=== PATIENT | male | born 1935 | race Caucasian/White ===

== ENCOUNTER 2018-09-23 15:51 | Observation (INO) ==
[2018-09-23] MEDS ORDERED: Ipratropium/Albuterol Neb 3 ML IH ONE (16:09)
[2018-09-23] MEDS ORDERED: methylPREDNISolone 125 MG/2 ML VIAL IVP ONE (16:10)
[2018-09-23 16:46] LABS: Basophils % 0.3 %; Eosinophils # 0.3 K/mcL (0.0-0.6); Eosinophils % 2.8 %; Hemoglobin 12.9 g/dL (12.9-16.9); Immature Granulocytes % 0.3 % (0-4); Lymphocytes % 10.9 %; Mean Corpuscular HGB Conc 32.3 g/dL (31.6-35.5); Mean Platelet Volume 9.4 fL (9.4-12.4); Monocytes # 0.4 K/mcL (0.0-1.3); Monocytes % 4.5 %; Neutrophils # 7.5 K/mcL (1.6-8.9); Platelet Count 135 K/mcL (140-400); Red Cell Distribution Width 14.6 % (11.5-14.5); Segmented Neutrophils % 81.2 %
--- NOTE | 2018-09-23 16:59 | Emergency Department Note ---
Disposition Clinical Impression: Acute exacerbation of chronic obstructive airways disease Congestive heart failure Qualifiers: Heart failure type: unspecified Heart failure chronicity: acute on chronic Qualified Code(s): I50.9 - Heart failure, unspecified Disposition: Admitted As Inpatient Condition: Fair Time of Disposition: 20:01 General Adult HPI - General Chief complaint: ED Shortness of Breath/Dyspnea Stated complaint: ALEXI/Nausea Time Seen by Provider: 09/23/18 16:36 Source: patient, family Limitations: no limitations Nursing Notes Reviewed: Yes Vital Signs Reviewed: Yes - History of Present Illness HPI Narrative: Tye Lowry is an 83 year old male presenting to the emergency department for shortness of breath and chest pain. He states that the chest pain started this morning, is localized to this left side and radiates into his back. He states that he has been having similar episodes for the past several years with associated SOB. He states that this episode of SOB started this morning while sitting, and is worse than normal. He states that he has asthma and uses inhalers prn, however they did not alleviate his current symptoms. He also states that he had 3 episodes of emesis this morning and noticed a small amount of blood in the vomitus. He states that he has a pace maker placed 5 years ago for an irregular heart rate. He denies any recent illness, fevers, chills, cough, or diarrhea, but admits to nausea and lower crampy abdominal pain. He denies any previous DVT or PE, hormone therapy, recent trips or recent surgery. The history, physical exam, and medical decision making was performed by the medical student either while I was physically present and actively involved or I personally re-performed the exam and medical decision making. I have verified the accuracy of the medical student's documentation with regards to the history, physical exam findings, and medical decision making. Pt Subjective Complaint: shortness of breath Onset (ago): hour(s) Location: chest Radiation: back Pain Severity: mild Pain Scale: 1 Quality: sharp Consistency: Improving Improves with: medication Worsens with: other (Deep breath) Associated symptoms: Reports: chest pain Treatments Prior to Arrival: other (Home inhaler) - Related Data Home Medications Medication Instructions Recorded Confirmed Alprazolam [Xanax] 0.5 mg PO HS 06/14/15 06/22/16 Atorvastatin [Lipitor] 10 mg PO QAM 06/14/15 06/22/16 Multivitamin [Multivitamins] 1 cap PO QPM 06/14/15 06/22/16 Omeprazole [PriLOSEC] 20 mg PO DAILY 06/14/15 06/22/16 Ergocalciferol (VITAMIN D2) 400 unit PO DAILY 06/04/16 06/22/16 [Vitamin D] Cetirizine HCl [Zyrtec] 10 mg PO PRN PRN 06/22/16 06/22/16 Previous Rx's Medication Instructions Recorded Metoprolol [Lopressor] 50 mg PO BID #60 tablet 09/18/15 Rivaroxaban [Xarelto] 20 mg PO DAILY #30 tablet 09/18/15 Allergies Allergy/AdvReac Type Severity Reaction Status Date / Time diazepam [From Valium] AdvReac Fainting Verified 11/19/17 11:45 Constitutional: Denies: fever, chills, weakness, weight change Eyes: Denies: eye pain, eye discharge, vision change Cardiovascular: Reports: chest pain. Denies: palpitations, dyspnea on exertion, edema, syncope Respiratory: Reports: dyspnea, wheezes. Denies: cough, hemoptysis, stridor Gastrointestinal: Reports: abdominal pain (Lower crampy), nausea, vomiting. Denies: diarrhea, constipation, hematemesis, melena, hematochezia Genitourinary: Denies: urgency, dysuria, frequency, hematuria Musculoskeletal: Denies: back pain, neck pain, arthralgia, myalgia Integumentary: Denies: rash, abrasion, lesions Neurological: Denies: headache, weakness, numbness, paresthesias, confusion, abnormal gait, vertigo Psychiatric: Denies: anxiety, depression, suicidal thoughts, homicidal thoughts, auditory hallucinations, visual hallucinations Endocrine: Denies: fatigue Hematological/Lymphatic: Denies: easy bleeding, easy bruising Allergic/Immunologic: Denies: facial swelling, urticaria Past Medical History - Past Medical History Medical history: Reports: non-contributory Surgical history: Reports: herniorrhaphy, knee replacement, orthopedic, other, pacemaker/AICD, sinus surgery Psychiatric history: Reports: no psych history - Social History Smoking Status: Never smoker Smokeless Tobacco Status: No Alcohol use: Reports: none Drug use: Reports: none Physical Exam - General Limitations: no limitations General appearance: alert - Head Head exam: atraumatic, normocephalic, normal inspection - Eye Eye exam: Present: normal appearance, PERRL, EOMI - ENT ENT exam: normal exam, normal oropharynx, mucous membranes moist - Neck Neck exam: Present: normal inspection, full ROM, trachea midline - Chest Chest inspection: Present: normal inspection, symmetric chest wall rise - Respiratory Respiratory exam: Present: respiratory distress, wheezes - Cardiovascular Cardiovascular exam: Present: regular rate. Absent: normal rhythm (Runs of PVCs ) - Abdominal Exam Abdominal exam: Present: soft, tenderness (Lower abdomen). Absent: distention, guarding, rebound, rigidity Abdominal tenderness: Present: suprapubic, mild - Extremities Exam Extremities exam: Present: normal inspection, full ROM. Absent: tenderness, pedal edema - Back Exam Back exam: Present: normal inspection, full ROM. Absent: tenderness - Neurological Exam Neurological exam: Present: alert, oriented X3 - Psychiatric Psychiatric exam: Present: normal affect, normal mood - Skin Skin exam: Present: warm, dry, intact, normal color Course Vital Signs Temperature 98.1 F 09/23/18 15:55 Pulse Rate 78 09/23/18 15:55 Respiratory Rate 30 09/23/18 15:55 Blood Pressure 164/78 09/23/18 15:55 O2 Sat by Pulse Oximetry 91 09/23/18 15:55 Temperature 98.1 F 09/23/18 16:46 Pulse Rate 79 09/23/18 19:01 Respiratory Rate 28 09/23/18 19:01 Blood Pressure 157/90 09/23/18 19:01 O2 Sat by Pulse Oximetry 98 09/23/18 19:01 Oxygen Delivery Oxygen Delivery Nasal Cannula Medical Decision Making - Lab Data Result diagrams: 09/23/18 16:16 09/23/18 16:16 Lab Results 09/23/18 09/23/18 09/23/18 Range/Units 16:16 16:16 16:16 WBC 9.3 (4.3-11.1) K/mcL RBC 4.30 (4.19-5.50) M/mcL Hgb 12.9 (12.9-16.9) g/dL Hct 40.0 (37.5-50.1) % MCV 93.0 (83.0-100.0) fL MCH 30.0 (28.0-33.3) pg MCHC 32.3 (31.6-35.5) g/dL RDW 14.6 H (11.5-14.5) % Plt Count 135 L (140-400) K/mcL MPV 9.4 (9.4-12.4) fL Immature Gran % 0.3 (0-4) % Seg Neutrophils % 81.2 % Lymphocytes % 10.9 % Monocytes % 4.5 % Eosinophils % 2.8 % Basophils % 0.3 % Neutrophils # 7.5 (1.6-8.9) K/mcL Lymphocytes # 1.0 (0.6-4.6) K/mcL Monocytes # 0.4 (0.0-1.3) K/mcL Eosinophils # 0.3 (0.0-0.6) K/mcL Basophils # 0.0 (0.0-0.2) K/mcL Sodium 140 (136-145) mEq/L Potassium 4.3 (3.5-5.1) mEq/L Chloride 103 (98-107) mEq/L Carbon Dioxide 31 H (23-29) mEq/L BUN 15 (8-23) mg/dL Creatinine 0.81 (0.70-1.30) mg/dL Est GFR ( Amer) > 60 (> 60) Est GFR (Non-Af Amer) > 60 (> 60) BUN/Creatinine Ratio 19 (6-26) Glucose 126 H (70-105) mg/dL Calculated Osmolality 292 (280-300) Lactic Acid 1.1 (0.5-2.2) mmol/L Calcium 9.7 (8.6-10.3) mg/dL Troponin I < 0.03 (< 0.04) ng/mL B-Natriuretic Peptide (Less than 100) pg/mL 09/23/18 Range/Units 16:16 WBC (4.3-11.1) K/mcL RBC (4.19-5.50) M/mcL Hgb (12.9-16.9) g/dL Hct (37.5-50.1) % MCV (83.0-100.0) fL MCH (28.0-33.3) pg MCHC (31.6-35.5) g/dL RDW (11.5-14.5) % Plt Count (140-400) K/mcL MPV (9.4-12.4) fL Immature Gran % (0-4) % Seg Neutrophils % % Lymphocytes % % Monocytes % % Eosinophils % % Basophils % % Neutrophils # (1.6-8.9) K/mcL Lymphocytes # (0.6-4.6) K/mcL Monocytes # (0.0-1.3) K/mcL Eosinophils # (0.0-0.6) K/mcL Basophils # (0.0-0.2) K/mcL Sodium (136-145) mEq/L Potassium (3.5-5.1) mEq/L Chloride (98-107) mEq/L Carbon Dioxide (23-29) mEq/L BUN (8-23) mg/dL Creatinine (0.70-1.30) mg/dL Est GFR ( Amer) (> 60) Est GFR (Non-Af Amer) (> 60) BUN/Creatinine Ratio (6-26) Glucose (70-105) mg/dL Calculated Osmolality (280-300) Lactic Acid (0.5-2.2) mmol/L Calcium (8.6-10.3) mg/dL Troponin I (< 0.04) ng/mL B-Natriuretic Peptide 589 H (Less than 100) pg/mL - Radiology Data Radiology results reviewed: Yes I reviewed the patient's radiology results. - EKG Data EKG #1 EKG attestation: Yes I reviewed and interpreted this EKG. EKG results narrative: 16:05 Ventricular rate 74 bpm, no P waves, QRS duration 84 ms, LAD a-fib and atrial flutter. Some PVCs. No ischemic ST changes noted.
[2018-09-23 17:04] LABS: BUN/Creatinine Ratio 19 (6-26); Blood Urea Nitrogen 15 mg/dL (8-23); Calcium 9.7 mg/dL (8.6-10.3); Carbon Dioxide 31 mEq/L (23-29); Chloride 103 mEq/L (98-107); Glucose 126 mg/dL (70-105); Osmolality,Calculated 292 (280-300); Potassium 4.3 mEq/L (3.5-5.1); Sodium 140 mEq/L (136-145); Troponin I < 0.03 ng/mL (< 0.04); eGFR For Non-African Americans > 60 (> 60)
--- NOTE | 2018-09-23 18:37 | Emergency Department Note ---
Disposition Clinical Impression: Acute exacerbation of chronic obstructive airways disease Congestive heart failure Qualifiers: Heart failure type: unspecified Heart failure chronicity: acute on chronic Qualified Code(s): I50.9 - Heart failure, unspecified Disposition: Admitted As Inpatient Referrals: Taz Lubin Jr, MD [Primary Care Provider] - Forms: ED Satisfaction Letter General Adult HPI - General Chief complaint: ED Shortness of Breath/Dyspnea Stated complaint: ALEXI/Nausea Time Seen by Provider: 09/23/18 16:36 Source: patient, family Limitations: no limitations - History of Present Illness Location: chest Pain Scale: 1 Quality: sharp Improves with: medication Worsens with: other (Deep breath) Associated symptoms: Reports: chest pain Treatments Prior to Arrival: other (Home inhaler) - Related Data Home Medications Medication Instructions Recorded Confirmed Alprazolam [Xanax] 0.5 mg PO HS 06/14/15 06/22/16 Atorvastatin [Lipitor] 10 mg PO QAM 06/14/15 06/22/16 Multivitamin [Multivitamins] 1 cap PO QPM 06/14/15 06/22/16 Omeprazole [PriLOSEC] 20 mg PO DAILY 06/14/15 06/22/16 Ergocalciferol (VITAMIN D2) 400 unit PO DAILY 06/04/16 06/22/16 [Vitamin D] Cetirizine HCl [Zyrtec] 10 mg PO PRN PRN 06/22/16 06/22/16 Previous Rx's Medication Instructions Recorded Metoprolol [Lopressor] 50 mg PO BID #60 tablet 09/18/15 Rivaroxaban [Xarelto] 20 mg PO DAILY #30 tablet 09/18/15 Allergies Allergy/AdvReac Type Severity Reaction Status Date / Time diazepam [From Valium] AdvReac Fainting Verified 11/19/17 11:45 Constitutional: Denies: fever, chills, weakness, weight change Eyes: Denies: eye pain, eye discharge, vision change Cardiovascular: Reports: chest pain. Denies: palpitations, dyspnea on exertion, edema, syncope Respiratory: Reports: dyspnea, wheezes. Denies: cough, hemoptysis, stridor Gastrointestinal: Reports: abdominal pain (Lower crampy), nausea, vomiting. Denies: diarrhea, constipation, hematemesis, melena, hematochezia Genitourinary: Denies: urgency, dysuria, frequency, hematuria Musculoskeletal: Denies: back pain, neck pain, arthralgia, myalgia Integumentary: Denies: rash, abrasion, lesions Neurological: Denies: headache, weakness, numbness, paresthesias, confusion, abnormal gait, vertigo Psychiatric: Denies: anxiety, depression, suicidal thoughts, homicidal thoughts, auditory hallucinations, visual hallucinations Endocrine: Denies: fatigue Hematological/Lymphatic: Denies: easy bleeding, easy bruising Allergic/Immunologic: Denies: facial swelling, urticaria Past Medical History - Past Medical History Medical history: Reports: non-contributory Surgical history: Reports: herniorrhaphy, knee replacement, orthopedic, other, pacemaker/AICD, sinus surgery Psychiatric history: Reports: no psych history - Social History Smoking Status: Never smoker Smokeless Tobacco Status: No Alcohol use: Reports: none Drug use: Reports: none Physical Exam - General Limitations: no limitations General appearance: alert Course Vital Signs Temperature 98.1 F 09/23/18 15:55 Pulse Rate 78 09/23/18 15:55 Respiratory Rate 30 09/23/18 15:55 Blood Pressure 164/78 09/23/18 15:55 O2 Sat by Pulse Oximetry 91 09/23/18 15:55 Temperature 98.1 F 09/23/18 16:46 Pulse Rate 78 09/23/18 16:46 Respiratory Rate 28 09/23/18 16:47 Blood Pressure 164/78 09/23/18 16:46 O2 Sat by Pulse Oximetry 97 09/23/18 16:47 Oxygen Delivery Oxygen Delivery Nasal Cannula Medical Decision Making - Lab Data Result diagrams: 09/23/18 16:16 09/23/18 16:16 Lab Results 09/23/18 09/23/18 09/23/18 Range/Units 16:16 16:16 16:16 WBC 9.3 (4.3-11.1) K/mcL RBC 4.30 (4.19-5.50) M/mcL Hgb 12.9 (12.9-16.9) g/dL Hct 40.0 (37.5-50.1) % MCV 93.0 (83.0-100.0) fL MCH 30.0 (28.0-33.3) pg MCHC 32.3 (31.6-35.5) g/dL RDW 14.6 H (11.5-14.5) % Plt Count 135 L (140-400) K/mcL MPV 9.4 (9.4-12.4) fL Immature Gran % 0.3 (0-4) % Seg Neutrophils % 81.2 % Lymphocytes % 10.9 % Monocytes % 4.5 % Eosinophils % 2.8 % Basophils % 0.3 % Neutrophils # 7.5 (1.6-8.9) K/mcL Lymphocytes # 1.0 (0.6-4.6) K/mcL Monocytes # 0.4 (0.0-1.3) K/mcL Eosinophils # 0.3 (0.0-0.6) K/mcL Basophils # 0.0 (0.0-0.2) K/mcL Sodium 140 (136-145) mEq/L Potassium 4.3 (3.5-5.1) mEq/L Chloride 103 (98-107) mEq/L Carbon Dioxide 31 H (23-29) mEq/L BUN 15 (8-23) mg/dL Creatinine 0.81 (0.70-1.30) mg/dL Est GFR ( Amer) > 60 (> 60) Est GFR (Non-Af Amer) > 60 (> 60) BUN/Creatinine Ratio 19 (6-26) Glucose 126 H (70-105) mg/dL Calculated Osmolality 292 (280-300) Lactic Acid 1.1 (0.5-2.2) mmol/L Calcium 9.7 (8.6-10.3) mg/dL Troponin I < 0.03 (< 0.04) ng/mL B-Natriuretic Peptide (Less than 100) pg/mL 09/23/18 Range/Units 16:16 WBC (4.3-11.1) K/mcL RBC (4.19-5.50) M/mcL Hgb (12.9-16.9) g/dL Hct (37.5-50.1) % MCV (83.0-100.0) fL MCH (28.0-33.3) pg MCHC (31.6-35.5) g/dL RDW (11.5-14.5) % Plt Count (140-400) K/mcL MPV (9.4-12.4) fL Immature Gran % (0-4) % Seg Neutrophils % % Lymphocytes % % Monocytes % % Eosinophils % % Basophils % % Neutrophils # (1.6-8.9) K/mcL Lymphocytes # (0.6-4.6) K/mcL Monocytes # (0.0-1.3) K/mcL Eosinophils # (0.0-0.6) K/mcL Basophils # (0.0-0.2) K/mcL Sodium (136-145) mEq/L Potassium (3.5-5.1) mEq/L Chloride (98-107) mEq/L Carbon Dioxide (23-29) mEq/L BUN (8-23) mg/dL Creatinine (0.70-1.30) mg/dL Est GFR ( Amer) (> 60) Est GFR (Non-Af Amer) (> 60) BUN/Creatinine Ratio (6-26) Glucose (70-105) mg/dL Calculated Osmolality (280-300) Lactic Acid (0.5-2.2) mmol/L Calcium (8.6-10.3) mg/dL Troponin I (< 0.04) ng/mL B-Natriuretic Peptide 589 H (Less than 100) pg/mL Attestation Statement - Attestation Attestation: I examined this patient and my medical decision-making was reviewed with the Resident Physician. I agree with the documented findings, disposition and treatment plan as described except to the extent set forth below. 83 year old male presets to the ED with complaints of ALEXI and is tachypneic to the 30s without being hypoxic and has a pacemaker. Patinet appears tohave an elevated BNP and like a COPD excbeariton. Von has exertional dyspnea on exam when trying to ambulate inthe room. WE will admit to medicine
--- NOTE | 2018-09-23 19:09 | Electrocardiograph Report ---
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
[2018-09-23] MEDS: Ipratropium/Albuterol Neb 3 ML IH SCH ×2 (19:50→23:45)
[2018-09-23] MEDS ORDERED: Albuterol 2.5 MG/3 ML NEBULIZER IH ONE (19:54)
--- NOTE | 2018-09-23 20:27 | Internal Med History&Physical ---
Date of Encounter: 09/23/18 Time of Encounter: 20:31 Internal Medicine - H&P: HPI Chief complaint: Shortness of breath Admitted From: Home Plans for Post Hospital Care: Home History of present illness: Tye Lowry is an 83 year old man with a history of asthma/COPD with restrictive ventilatory impairment without significant bronchodilator response on spirometry of 2015 in addition to an obstructive flow volume loop, paroxysmal atrial fibrillation with a pacemaker in place and [facility] with a complaint of shortness of breath and chest pain. His reports that his chest pain has been progressing over the past few days and poorly responsive to his inhaler therapy and today acutely worsened. He also says that today he started feeling some intermittent chest pain around his precordial region with no characteristic radiation or associated lightheadedness. He was seen to be in moderate respiratory distress with shallow tachypneic breathing which modestly improved with nebulizer treatment however at this time he feels it is recurring. He is admitted for ongoing observation due to chest pain and incomplete response to nebulizer therapy. PMHx: Anemia, Arthritis, Cardiac Arrhythmia. Surgical history remarkable for EGD by Dr Carlitos Wang in March 2013. Normal. Colonoscopy by Dr Akiko De Luna in November 2010. Normal SHx: Former smoker. FHx: Significant for heart disease and cancer. He has a sister with a history of cancer. Family history is also significant for hyperlipidemia. Review of systems: All systems reviewed and negative except as listed above in the HPI. Past Med Surg Social Fam HX - Past Medical History Medical history: non-contributory Additional medical history: 'mild heart attack (pacemaker) Psychiatric history: no psych history - Past Surgical History Surgical History: herniorrhaphy, knee replacement, orthopedic, other, pacemaker/AICD, sinus surgery Additional surgical history: egd - colonoscopy -hemmoroids - Social History Smoking Status: Never smoker Smokeless Tobacco Status: No Alcohol use: none Drug use: none - Family History Mother Living Status: Father Living Status: Internal Medicine - H&P: Meds Multivitamin [Multivitamins] 1 cap PO QPM 06/14/15 [History] Rivaroxaban [Xarelto] 20 mg PO DAILY #30 tablet 09/18/15 [Rx] Cetirizine HCl [Zyrtec] 10 mg PO PRN PRN 06/22/16 [History] ALPRAZolam [Xanax 0.25 MG Tablet] 0.25 mg PO DAILY 09/23/18 [History] Albuterol Sulfate [Proventil Hfa] 2 puff IH Q4H PRN 09/23/18 [History] Atorvastatin [Lipitor] 10 mg PO HS 09/23/18 [History] Metoprolol Tartrate 50 mg PO BID 09/23/18 [History] Omeprazole [PriLOSEC] 20 mg PO DAILY 09/23/18 [History] Oxygen 2 l IH AD 09/23/18 [History] Allergy/AdvReac Type Severity Reaction Status Date / Time diazepam [From Valium] AdvReac Fainting Verified 09/23/18 20:08 All Systems PM: A 10-system review of systems was performed and is negative for pertinent findings except as documented above in the HPI. - Constitutional Vitals: Temp Pulse Resp BP Pulse Ox 98.1 F 79 34 146/85 98 09/23/18 16:46 09/23/18 19:01 09/23/18 20:17 09/23/18 20:17 09/23/18 19:01 Exam: Vitals: Reviewed General: Well-developed male sitting in bed with mild respiratory distress noted Skin: Warm and supple HEENT: Moist mucous membranes. No conjunctivae pallor. Neck: No lymphadenopathy. No JVD. No carotid bruits. No palpable thyroid. Chest: Diminished thoracic expansion with reduced breath sounds bilaterally and scattered wheezes in both lung [place]. Heart: Irregularly irregular. Pacemaker on left upper chest wall Abdomen: Non-distended, soft and non-tender to palpation. Extremities: Trace pedal edema Neurological: Awake, alert and oriented to person, place and time. No focal deficits. Psych: Affect appropriate. Internal Med - H&P Results - Labs CBC & Chem 7: 09/23/18 16:16 09/23/18 16:16 Labs: Short CBC 09/23/18 Range/Units 16:16 WBC 9.3 (4.3-11.1) K/mcL Hgb 12.9 (12.9-16.9) g/dL Hct 40.0 (37.5-50.1) % Plt Count 135 L (140-400) K/mcL Neutrophils # 7.5 (1.6-8.9) K/mcL BMP 09/23/18 16:16 Sodium 140 Potassium 4.3 Chloride 103 Carbon Dioxide 31 H BUN 15 Creatinine 0.81 Glucose 126 H Calcium 9.7 Cardiac Enzymes 09/23/18 Range/Units 16:16 Troponin I < 0.03 (< 0.04) ng/mL - Impressions ITS Impressions Chest X-Ray 09/23/18 16:09 IMPRESSION: Stable portable study. D/ / Lakisha Corrigan Cha, MD / Lakisha Corrigan Cha, MD Interpreting Provider: Lakisha Corrigan Cha, MD - Assessment and plan (1) Acute exacerbation of chronic obstructive airways disease Current Visit: Yes Status: Acute Assessment and plan: Will continue intravenous steroids due to his ongoing symptoms, respiratory watch, q4hr nebulizer therapy and continue supplemental oxygen. Swab for inf luenza. Short course azithromycin. (2) Chest pain Current Visit: No Status: Resolved Assessment and plan: Due to prior cardiac history and new complaint of oppressive pain, will monitor on telemetry and trend troponins and EKG as well. Qualifiers: Chest pain type: precordial pain Qualified Code(s): R07.2 - Precordial pain (3) Atrial fibrillation Current Visit: Yes Status: Chronic Assessment and plan: Continue rivaroxaban. Rate controlled Qualifiers: Atrial fibrillation type: chronic Qualified Code(s): I48.2 - Chronic atrial fibrillation (4) Diastolic CHF, chronic Current Visit: Yes Status: Chronic Assessment and plan: No signs of acute decompensation at this time. Has minimal elevation of BNP and trace pedal edema. We will continue home medications. (5) Tachy-irma syndrome Current Visit: Yes Status: Suspected Assessment and plan: Pacemaker in place and functional. - Time Spent With Patient Total time spent is greater than 50% in coordination of care (as documented) at patient's floor/unit and/or counseling patient: Greater than 35 minutes
[2018-09-23] MEDS ORDERED: NON-FORMULARY MEDICATION 1 EACH EACH (Oxygen [Oxygen] 2 L) IH SCH (20:45)
[2018-09-23] MEDS ORDERED: ALPRAZolam 0.5 MG TABLET PO SCH (21:00)
[2018-09-23] MEDS: ALPRAZolam 0.25 MG TABLET PO SCH (22:46)
[2018-09-23] MEDS: Azithromycin 500 MG in D5% in Water 250 ML IVPB SCH (22:47)
[2018-09-24] MEDS: Ipratropium/Albuterol Neb 3 ML IH SCH ×6 (03:43→23:54)
[2018-09-24] MEDS ORDERED: Acetaminophen 325 MG TABLET PO PRN (06:38)
[2018-09-24] MEDS ORDERED: OXYCODONE Oral CONC 10 MG/0.5 ML ORAL.SYG SL PRN (06:39)
[2018-09-24] MEDS: *HR* HYDROcodone/Acet 5/325 mg TABLET PO PRN ×2 (06:52→22:53)
[2018-09-24] MEDS: MethylPREDNISolone 40 MG/ML VIAL IVP SCH ×3 (06:52→22:54)
[2018-09-24] MEDS ORDERED: predniSONE 20 MG TABLET PO SCH (09:00)
[2018-09-24] MEDS: Cholecalciferol (D-3) 1,000 UNIT TABLET PO SCH (09:29)
--- NOTE | 2018-09-24 10:50 | Internal Med Progress Note ---
Hospitalist Progress Note - Encounter Date of Encounter: 09/24/18 Time of Encounter: 10:50 - Subjective Interval History: Patient was seen and examined at bedside-continues to complain of shortness of breath-denies any chest pain at this time however he does have weight describes as musculoskeletal pain which occurs in his back and radiates to his chest and is relieved with pressure as well as pain medication. I did review treatment plan at the patient verbalized understanding - Exam Vitals: Temp Pulse Resp BP Pulse Ox 97.6 F 71 17 149/78 99 09/24/18 07:08 09/24/18 07:08 09/24/18 07:29 09/24/18 07:08 09/24/18 07:29 Exam: Vitals: Reviewed General: Well-developed male sitting in bed with mild respiratory distress noted Skin: Warm and supple HEENT: Moist mucous membranes. No conjunctivae pallor. Neck: No lymphadenopathy. No JVD. No carotid bruits. No palpable thyroid. Chest: Diminished thoracic expansion with reduced breath sounds bilaterally and scattered wheezes in both lung [place]. Heart: Irregularly irregular. Pacemaker on left upper chest wall Abdomen: Non-distended, soft and non-tender to palpation. Extremities: Trace pedal edema Neurological: Awake, alert and oriented to person, place and time. No focal deficits. Psych: Affect appropriate. - Assessment and Plan (1) Atrial fibrillation Current Visit: Yes Status: Chronic Assessment and Plan: Continue rivaroxaban. Rate controlled 09/24 Currently rate controlled at times patient is a paced rhythm on monitor Continue with cardiac monitoring Continue beta marilee as well as Xarelto (2) Chest pain Current Visit: No Status: Resolved Assessment and Plan: Due to prior cardiac history and new complaint of oppressive pain, will monitor on telemetry and trend troponins and EKG as well. 09/24 I do not suspect this is cardiac in nature patient states he has chronic pain in his back that radiates to his chest which has been relieved with pressure as well as pain medication. Troponins have been negative 3 (3) Diastolic CHF, chronic Current Visit: Yes Status: Chronic Assessment and Plan: No signs of acute decompensation at this time. Has minimal elevation of BNP and trace pedal edema. We will continue home medications. 09/24 Does not appear to be fluid overloaded at this time we will continue with home medication monitor intake and output and daily weights Low salt diet (4) Tachy-irma syndrome Current Visit: Yes Status: Suspected Assessment and Plan: Pacemaker in place and functional. 09/24 Continuous cardiac monitoring patient does have pacemaker appears to be funct ioning (5) Acute exacerbation of chronic obstructive airways disease Current Visit: Yes Status: Acute Assessment and Plan: Will continue intravenous steroids due to his ongoing symptoms, respiratory watch, q4hr nebulizer therapy and continue supplemental oxygen. Swab for influenza. Short course azithromycin. 09/24 Patient continues to experience wheezes at time is audible-he does have some slight conversational dyspnea we will continue with IV steroids and nebulizers every 4 hours oxygen to maintain SPO2 greater than 92% azithromycin We will check a respiratory panel patient's has been ill History of states he did have a flu and pneumonia shot in August Sputum culture and blood cultures are pending - Time Spent with Patient Total time spent is greater than 50% in coordination of care (as documented) at patient's floor/unit and/or counseling patient: Internal Medicine: Result - Labs CBC & Chem 7: 09/23/18 16:16 09/23/18 16:16 Labs: Short CBC 09/23/18 Range/Units 16:16 WBC 9.3 (4.3-11.1) K/mcL Hgb 12.9 (12.9-16.9) g/dL Hct 40.0 (37.5-50.1) % Plt Count 135 L (140-400) K/mcL Neutrophils # 7.5 (1.6-8.9) K/mcL BMP 09/23/18 16:16 Sodium 140 Potassium 4.3 Chloride 103 Carbon Dioxide 31 H BUN 15 Creatinine 0.81 Glucose 126 H Calcium 9.7 Cardiac Enzymes 09/23/18 09/23/18 09/24/18 Range/Units 16:16 21:59 04:36 Troponin I < 0.03 < 0.03 < 0.03 (< 0.04) ng/mL - Impressions Impressions Chest X-Ray 09/23/18 16:09 IMPRESSION: Stable portable study. D/ / Lakisha Corrigan Cha, MD / Lakisha Corrigan Cha, MD Interpreting Provider: Lakisha Corrigan Cha, MD Consult Discharge Plan - Plan Referrals: Taz Lubin Jr, MD [Primary Care Provider] - (1) Atrial fibrillation Qualifiers: Atrial fibrillation type: chronic Qualified Code(s): I48.2 - Chronic atrial fibrillation (2) Chest pain Qualifiers: Chest pain type: precordial pain Qualified Code(s): R07.2 - Precordial pain
[2018-09-24 16:30] LABS: Adenovirus Not Detected (Not Detect); Bordetella Pertussis Not Detected (Not Detect); Chlamydophila pneumoniae Not Detected (Not Detect); Coronavirus 229E Not Detected (Not Detect); Coronavirus HKU1 Not Detected (Not Detect); Coronavirus NL63 Not Detected (Not Detect); Coronavirus OC43 Not Detected (Not Detect); Human Metapneumovirus Not Detected (Not Detect); Human Rhinovirus/Enterovirus DETECTED (Not Detect); Influenza A Subtype 2009 H1 Not Detected (Not Detect); Influenza A Untypeable Not Detected (Not Detect); Influenza B Not Detected (Not Detect); Mycoplasma pneumoniae Not Detected (Not Detect); Parainfluenza Virus 1 Not Detected (Not Detect); Parainfluenza Virus 2 Not Detected (Not Detect); Parainfluenza Virus 3 Not Detected (Not Detect); Parainfluenza Virus 4 Not Detected (Not Detect); Respiratory Syncytial Virus Not Detected (Not Detect)
[2018-09-24] MEDS: *HR* Rivaroxaban 10 MG TABLET PO SCH (17:28)
[2018-09-24] MEDS: Azithromycin 500 MG in D5% in Water 250 ML IVPB SCH (20:42)
[2018-09-24] MEDS: ALPRAZolam 0.25 MG TABLET PO SCH (20:42)
[2018-09-25 03:26] LABS: Basophils % 0.1 %; Hematocrit 38.1 % (37.5-50.1); Hemoglobin 12.6 g/dL (12.9-16.9); Immature Granulocytes % 0.7 % (0-4); Lymphocytes # 0.6 K/mcL (0.6-4.6); Mean Corpuscular HGB Conc 33.1 g/dL (31.6-35.5); Mean Corpuscular Hemoglobin 30.4 pg (28.0-33.3); Mean Corpuscular Volume 91.8 fL (83.0-100.0); Mean Platelet Volume 9.9 fL (9.4-12.4); Monocytes # 0.3 K/mcL (0.0-1.3); Monocytes % 2.3 %; Neutrophils # 12.9 K/mcL (1.6-8.9); Nucleated Red Blood Cells 0.1 /100 WBC (0); Platelet Count 140 K/mcL (140-400); Red Blood Count 4.15 M/mcL (4.19-5.50); Red Cell Distribution Width 14.8 % (11.5-14.5); Segmented Neutrophils % 92.9 %
[2018-09-25 03:43] LABS: BUN/Creatinine Ratio 27 (6-26); Blood Urea Nitrogen 28 mg/dL (8-23); Calcium 9.5 mg/dL (8.6-10.3); Carbon Dioxide 28 mEq/L (23-29); Chloride 103 mEq/L (98-107); Glucose 168 mg/dL (70-105); Osmolality,Calculated 295 (280-300); Potassium 4.4 mEq/L (3.5-5.1); Sodium 138 mEq/L (136-145); eGFR For Non-African Americans > 60 (> 60)
[2018-09-25] MEDS: Ipratropium/Albuterol Neb 3 ML IH SCH ×6 (04:24→19:49)
[2018-09-25] MEDS: MethylPREDNISolone 40 MG/ML VIAL IVP SCH ×3 (05:54→20:40)
[2018-09-25] MEDS: *HR* HYDROcodone/Acet 5/325 mg TABLET PO PRN (05:54)
--- NOTE | 2018-09-25 09:14 | Internal Med Progress Note ---
Hospitalist Progress Note - Encounter Date of Encounter: 09/25/18 Time of Encounter: 09:09 - Subjective Interval History: Mr Morales Lowry Continues with episodic chest pain, distal to left wall pacemaker. Continues to have acute episodic left scapula pain, that is improved with pressure on the corner of the wall, analgesic, and if "my at times pushes on the spot". States he at times feels a knot in the area of pain. Denies any other associated s/s such as shortness of breath, N/V, dizziness, blurred vision, associated with left scapular pain. He is interviewed at bedside today, accompanied by his , in no acute distress, pleasant, alert,awake, and oriented x 4 - Exam Vitals: Temp Pulse Resp BP Pulse Ox 97.8 F 71 20 145/86 95 09/25/18 07:35 09/25/18 07:35 09/25/18 08:03 09/25/18 07:35 09/25/18 08:03 Exam: stable on RA - Assessment and Plan (1) Atrial fibrillation Current Visit: Yes Status: Chronic Assessment and Plan: pacer in left chest wall, with paced rthym on telemetry. EKG reviewed and abnormal : ATial Fib with aberrant conduction or ventricular premature complexes, Positive Right ventricular conduction delay, ST deviation and moderate T-wave abnormality, consider lateral ischemia ST deviation and moderate T-wave abnormality , consider inferior ischemia Troponin trending neg x 3 Consult for cardiology placed . 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 with paced rhythm Will continue with telemetry and Xarelto (5) Acute exacerbation of chronic obstructive airways disease Current Visit: Yes Status: Acute Assessment and Plan: Stable, non-dyspneic Flu swab negative, Rhino swab positive for common cold Will continue with ATB DVT Prophylaxis: per protocol, continue xarelto - Summary of Assessment and Plan Summary of Assessment and Plan: Continues with episodic chest pain, and left scapula pain. Probable muscloskele chin in nature. Paced rhyme per telemetry with abnormal EKG, : atrial fib, with aberrant conduction or ventricular PVC, , possible right Ventricular conduction delay, ST Deviation and moderate T-wave abn, consider lateral ischemia, consider inferior ischemia, Troponin negative . Cardiology consult has been placed. Will continue to monitor closely with telemetry, continue beta blockers, and anticoagulants. Influenza negative with positive common cold rhinovirus. - Time Spent with Patient Total time spent is greater than 50% in coordination of care (as documented) at patient's floor/unit and/or counseling patient: less than 15 minutes Plan of Care Discussed with: patient Internal Medicine: Result - Labs CBC & Chem 7: 09/25/18 02:53 09/25/18 02:53 Labs: Short CBC 09/25/18 Range/Units 02:53 WBC 13.9 H (4.3-11.1) K/mcL Hgb 12.6 L (12.9-16.9) g/dL Hct 38.1 (37.5-50.1) % Plt Count 140 (140-400) K/mcL Neutrophils # 12.9 H (1.6-8.9) K/mcL BMP 09/25/18 02:53 Sodium 138 Potassium 4.4 Chloride 103 Carbon Dioxide 28 BUN 28 H Creatinine 1.04 Glucose 168 H Calcium 9.5 - EKG Interpretation EKG Interpreted by Myself: No (abnormal see report ) - Prior EKG Data When compared to previous EKG: there are significant changes Consult Discharge Plan - Plan Referrals: Taz Lubin Jr, MD [Primary Care Provider] - (1) Atrial fibrillation Qualifiers: Atrial fibrillation type: chronic Qualified Code(s): I48.2 - Chronic atrial fibrillation (2) Chest pain Qualifiers: Chest pain type: precordial pain Qualified Code(s): R07.2 - Precordial pain
[2018-09-25] MEDS: Cholecalciferol (D-3) 1,000 UNIT TABLET PO SCH (09:34)
[2018-09-25] MEDS ORDERED: BENZOCAINE/MENTHOL 1 LOZENGE (BAG OF 6) MM PRN (11:56)
[2018-09-25] MEDS: *HR* Rivaroxaban 10 MG TABLET PO SCH (18:07)
[2018-09-25] MEDS: ALPRAZolam 0.25 MG TABLET PO SCH (20:39)
[2018-09-25] MEDS: Azithromycin 500 MG in D5% in Water 250 ML IVPB SCH (20:40)
[2018-09-26] MEDS: Ipratropium/Albuterol Neb 3 ML IH SCH ×7 (00:11→23:05)
[2018-09-26] MEDS: *HR* HYDROcodone/Acet 5/325 mg TABLET PO PRN ×2 (03:34→21:23)
[2018-09-26 04:42] LABS: Basophils % 0.1 %; Hematocrit 36.6 % (37.5-50.1); Hemoglobin 12.1 g/dL (12.9-16.9); Immature Granulocytes % 1.2 % (0-4); Lymphocytes # 0.6 K/mcL (0.6-4.6); Lymphocytes % 5.3 %; Mean Corpuscular HGB Conc 33.1 g/dL (31.6-35.5); Mean Corpuscular Hemoglobin 30.3 pg (28.0-33.3); Mean Corpuscular Volume 91.5 fL (83.0-100.0); Mean Platelet Volume 9.7 fL (9.4-12.4); Monocytes # 0.3 K/mcL (0.0-1.3); Monocytes % 2.6 %; Platelet Count 151 K/mcL (140-400); Red Cell Distribution Width 14.9 % (11.5-14.5); Segmented Neutrophils % 90.8 %
[2018-09-26 04:58] LABS: BUN/Creatinine Ratio 34 (6-26); Blood Urea Nitrogen 35 mg/dL (8-23); Calcium 9.3 mg/dL (8.6-10.3); Carbon Dioxide 27 mEq/L (23-29); Chloride 103 mEq/L (98-107); Glucose 149 mg/dL (70-105); Osmolality,Calculated 297 (280-300); Potassium 4.4 mEq/L (3.5-5.1); Sodium 138 mEq/L (136-145); eGFR For Non-African Americans > 60 (> 60)
[2018-09-26] MEDS: MethylPREDNISolone 40 MG/ML VIAL IVP SCH (05:43)
[2018-09-26] MEDS: Cholecalciferol (D-3) 1,000 UNIT TABLET PO SCH (08:21)
--- NOTE | 2018-09-26 12:43 | Cardiology Consult Note ---
<Stephani Galloway Freda - Last Filed: 09/26/18 12:57> Date of Encounter: 09/26/18 Time of Encounter: 10:00 Assessment and Plan (1) Chest pain Current Visit: Yes Status: Chronic Cardiology consulted for chest pain. Atypical chest pain described, likely musculoskeletal in etiology. Reproducible chest pain upon exam. ECG shows afib, paced rhythm--similar to previous ECG. Hx of nuclear stress test in 2016--negative for ishchemia or infarct. Last TTE 2016--LVEF 60%, asymmetric hypertrophy of the basal septum, moderately dilated LA, mild MR/TR, no PH, normal wall motion. Recommend TTE to evaluate structure and function, if no significant findings anticipate sign-off. Qualifiers: Chest pain type: precordial pain Qualified Code(s): R07.2 - Precordial pain (2) Atrial fibrillation Current Visit: Yes Status: Chronic Hx of atrial fibrillation, rate controlled on oral betablocker. Hx of tachy-irma syndrome s/p PPM in 2014. Continue Xarelto for AC. Qualifiers: Atrial fibrillation type: persistent Qualified Code(s): I48.1 - Persistent atrial fibrillation (3) Acute exacerbation of chronic obstructive airways disease Current Visit: Yes Status: Acute Dyspnea resolved with breathing tx, nebs, and steroids. Mgmt per primary service. Discussion w patient/family: The assessment and plan as outlined above was discussed with the patient and/or family members who expressed understanding and agreement. All questions were answered. Thank you for involving us in the care of your patient. Please call with any questions. The patient will be discussed and reviewed with Dr. Magallon; changes to be made accordingly. History of Present Illness Consult date: 09/26/18 Requesting physician: Lori Donald Consult reason: Chest pain, abnormal ECG Chief complaint: Shortness of breath History of present illness: Mr. Lowry is a 83 year old male with PMHx significant of PAF (Xarelto), tachybrady syndrome s/p PPM, and COPD who presented to the ED on Wednesday with complaints of worsening shortness of breath; he was found to have a COPD exacerbation and symptoms largely improved with breathing treatment and IV solu-medrol. He also describes left-sided chest discomfort, that has been present for the past year. Pain occurs when opening and closing doors, or lifting a heavy object. Troponin negative x3. No chest pain upon my exam today. Cardiology consulted for abnormal ECG and chest discomfort. Prior CV testing: TTE 03/2016: LVEF 60%, asymmetric hypertrophy of the basal septum, moderately dilated LA, mild MR/TR, no PH, normal wall motion Nuclear stress 11/2015: gated EF=59%, negative for ischemia/infarct Past Med Surg Social Fam HX - Past Medical History Attestation: Yes The following information was validated with the patient. Source: patient Medical history: atrial fibrillation, COPD Psychiatric history: no psych history - Past Surgical History Surgical History: herniorrhaphy, knee replacement, orthopedic, other, pacemaker/AICD, sinus surgery Additional surgical history: egd - colonoscopy, hemorrhoids - Social History Smoking Status: Never smoker Smokeless Tobacco Status: No Alcohol use: none Drug use: none - Family History Mother Living Status: Hx Family Cardiac Disorders: Yes Father Living Status: Hx Family Cardiac Disorders: Yes Medications and Allergies Multivitamin [Multivitamins] 1 cap PO QPM 06/14/15 [History] Rivaroxaban [Xarelto] 20 mg PO DAILY #30 tablet 09/18/15 [Rx] Cetirizine HCl [Zyrtec] 10 mg PO PRN PRN 06/22/16 [History] ALPRAZolam [Xanax 0.25 MG Tablet] 0.25 mg PO DAILY 09/23/18 [History] Albuterol Sulfate [Proventil Hfa] 2 puff IH Q4H PRN 09/23/18 [History] Atorvastatin [Lipitor] 10 mg PO HS 09/23/18 [History] Metoprolol Tartrate 50 mg PO BID 09/23/18 [History] Omeprazole [PriLOSEC] 20 mg PO DAILY 09/23/18 [History] Oxygen 2 l IH AD 09/23/18 [History] predniSONE [PredniSONE] 40 mg PO DAILY 2 Days tablet 09/26/18 [Rx] Allergy/AdvReac Type Severity Reaction Status Date / Time diazepam [From Valium] AdvReac Fainting Verified 09/23/18 20:08 All Systems Review: The remainder of the systems were reviewed and are negative - Cardiovascular Cardiovascular: as per HPI Physical Examination Vital Signs, Last 4 Hours Temp Pulse Resp BP Pulse Ox 09/26/18 11:39 97.4 F L 72 16 143/81 95 09/26/18 11:18 16 96 General: Conversant, No Apparent Distress HEENT: Atraumatic, Normocephaly, Mucus Membranes Moist Cardiac: Other (irregularly irregular) Lungs: Normal Breath Sounds Neuro: Alert and responsive Abdomen: Soft, Non-Tender, Other (BS active x4) Skin: No rashes noted on visualized skin Musculoskeletal: Other (reproducible chest wall tenderness upon exam) Extremities: No Edema, Normal Pulses Results 09/26/18 03:59 09/26/18 03:59 Lab Results 09/26/18 09/26/18 03:59 03:59 WBC 12.1 H Hgb 12.1 L Hct 36.6 L Plt Count 151 Sodium 138 Potassium 4.4 Chloride 103 Carbon Dioxide 27 BUN 35 H Creatinine 1.04 Glucose 149 H Calcium 9.3 Active Medications Acetaminophen (Tylenol) 650 mg PO Q6HR PRN PRN Reason: Mild Pain Stop: 03/26/19 06:39 Hydrocodone Bitart/Acetaminophen ([place] 5-325 Mg) 1 tab PO Q6HR PRN PRN Reason: Moderate Pain Stop: 03/26/19 06:39 Last Admin: 09/26/18 03:34 Dose: 1 tab Albuterol/Ipratropium (Duoneb) 3 ml IH [id number] [facility] Stop: 03/25/19 20:01 Last Admin: 09/26/18 11:18 Dose: 3 ml Alprazolam (Xanax) 0.25 mg PO HS [facility]; Protocol Stop: 03/25/19 21:01 Last Admin: 09/25/18 20:39 Dose: 0.25 mg Atorvastatin Calcium (Lipitor) 10 mg PO HS [facility] Stop: 03/25/19 21:01 Last Admin: 09/25/18 20:39 Dose: 10 mg Benzocaine/Menthol (Chloraseptic Sore Throat Lozng) 0 lozenge MM Q2HR PRN PRN Reason: Sore Throat Stop: 03/27/19 11:57 Last Admin: 09/25/18 14:36 Dose: 1 lozenge Azithromycin 500 mg/ Dextrose 250 mls @ 252 mls/hr IVPB Q24H [facility] Stop: 03/25/19 21:01 Last Infusion: 09/26/18 06:51 Dose: Infused Metoprolol Tartrate (Lopressor) 50 mg PO BID [facility] Stop: 03/25/19 21:01 Last Admin: 09/26/18 08:21 Dose: 50 mg Omeprazole (Prilosec) 20 mg PO DAILY [facility]; Protocol Stop: 03/26/19 09:01 Last Admin: 09/26/18 08:21 Dose: 20 mg Oxycodone HCl (Oxycodone Oral Conc) 10 mg SL Q6HR PRN; Protocol PRN Reason: Severe Pain Stop: 03/26/19 06:40 Prednisone (Prednisone) 40 mg PO DAILY [facility] Stop: 03/29/19 09:01 Rivaroxaban (Xarelto) 20 mg PO 1700 [facility] Stop: 03/26/19 17:01 Last Admin: 09/25/18 18:07 Dose: 20 mg Vitamin D (Vitamin D) 1,000 unit PO DAILY [facility] Stop: 03/26/19 09:01 Last Admin: 09/26/18 08:21 Dose: 1,000 unit - Imaging and Cardiology Stress Test: report reviewed Echo: pending, report reviewed Other Results: 12 hour tele: avg HR=73 paced, afib. - EKG Interpretation EKG results cardiology: personally reviewed Consult Discharge Plan - Plan Referrals: Taz Lubin Jr, MD [Primary Care Provider] - Prescriptions: predniSONE [PredniSONE] 40 mg PO DAILY 2 Days tablet <Wagner Magallon A - Last Filed: 09/26/18 16:47> Date of Encounter: 09/26/18 - Attending Attestation I have personally performed a face to face evaluation on this patient. I have reviewed and agree with the documented findings and care plan as documented by the [employer]. History and Exam by me shows: 83-year-old white male with history of PAF, tachybradycardia syndrome status post pacemaker, presenting with atypical chest pain, and wheezing. He reports exposure to air pollution at the [employer] long time ago. AAOX3 in NAD at the bedside Hemodynamically stable Cardiopulmonary exam revealed diffuse expiratory wheezes Troponin negative 2 .EKG shows no acute ST-T changes Echo pending Impression/plan: Atypical chest pain possibly COPD exacerbation. Obtain echocardiogram Wagner Vasquez MD Assessment and Plan Discussion w patient/family: The assessment and plan as outlined above was discussed with the patient and/or family members who expressed understanding and agreement. All questions were answered. Thank you for involving us in the care of your patient. Please call with any questions. History of Present Illness History of present illness: Mr. Lowry is a 83 year old male All Systems Review: The remainder of the systems were reviewed and are negative Physical Examination Vital Signs, Last 4 Hours Temp Pulse Resp BP Pulse Ox 09/26/18 15:51 97.7 F 70 16 128/73 97 Results 09/26/18 03:59 09/26/18 03:59 Lab Results 09/26/18 09/26/18 03:59 03:59 WBC 12.1 H Hgb 12.1 L Hct 36.6 L Plt Count 151 Sodium 138 Potassium 4.4 Chloride 103 Carbon Dioxide 27 BUN 35 H Creatinine 1.04 Glucose 149 H Calcium 9.3
--- NOTE | 2018-09-26 14:36 | Discharge Summary ---
- NOTES TO OUTPATIENT PROVIDER Notes to Outpatient Provider: Treated for acute exacerbation of COPD-advised patient to follow-up outpatient pulmonary patient was last assessed by pulmonology 2015 we will continue with steroid burst as well as duonebs as needed Orders not resulted at time of discharge: Pending orders 09/23/18 16:58 Culture,Blood [BC] Stat 09/24/18 06:40 EKG [ECG 12 lead ECG] [ECG] Routine 09/26/18 12:56 EV echocardiogram Routine 09/27/18 04:00 CBC [Complete Blood Count] [HEME] AM 0400 Chem 7 [Basic Metabolic Panel] AM 0400 Date of Encounter: 09/26/18 Time of Encounter: 14:36 - Discharge Diagnosis (1) Atrial fibrillation Priority: Secondary Status: Chronic Qualifiers: Atrial fibrillation type: persistent Qualified Code(s): I48.1 - Persistent atrial fibrillation (2) Chest pain Priority: Secondary Status: Chronic Qualifiers: Chest pain type: precordial pain Qualified Code(s): R07.2 - Precordial pain (3) Diastolic CHF, chronic Priority: Secondary Status: Chronic (4) Tachy-irma syndrome Priority: Secondary Status: Suspected (5) Acute exacerbation of chronic obstructive airways disease Priority: Primary Status: Acute Hospital course: Mr. Lowry is a 83 year old male past no focal history of asthma/COPD paroxysmal atrial fibrillation with pacemaker presented to [facility] ED with complaints of shortness of breath chest pain was down to be in moderate respiratory distress requiring oxygen supplementation as well as bronchodilators. Respiratory panel was negative for influenza however is positive for rhinovirus troponins were negative 3 EKG showing paced rhythm he was atrial fibrillation with paced rhythm on the monitor controlled rate chest pain occurs mostly in scapula radiating to chest with patient states is chronic. Patient was given IV steroids respiratory state did not improve and he was switched to oral steroids completed a short course of azithromycin currently he appears to be his respiratory baseline lung sounds are clear no wheezing noted. Patient was seen by cardiology cardiac echo was obtained to evaluate structure and function he will be discharged home on a steroid burst will follow-up with primary care provider as well as pulmonology as outpatient patient verbalized understanding - Time Spent with Patient Total time spent providing and/or coordinating discharge services: - Discharge Medications Prescriptions: predniSONE [PredniSONE] 40 mg PO DAILY 2 Days tablet Home Medications: Multivitamin [Multivitamins] 1 cap PO QPM 06/14/15 [History] Rivaroxaban [Xarelto] 20 mg PO DAILY #30 tablet 09/18/15 [Rx] Cetirizine HCl [Zyrtec] 10 mg PO PRN PRN 06/22/16 [History] ALPRAZolam [Xanax 0.25 MG Tablet] 0.25 mg PO DAILY 09/23/18 [History] Albuterol Sulfate [Proventil Hfa] 2 puff IH Q4H PRN 09/23/18 [History] Atorvastatin [Lipitor] 10 mg PO HS 09/23/18 [History] Metoprolol Tartrate 50 mg PO BID 09/23/18 [History] Omeprazole [PriLOSEC] 20 mg PO DAILY 09/23/18 [History] Oxygen 2 l IH AD 09/23/18 [History] predniSONE [PredniSONE] 40 mg PO DAILY 2 Days tablet 09/26/18 [Rx] Allergies/Adverse Reactions: Allergy/AdvReac Type Severity Reaction Status Date / Time diazepam [From Valium] AdvReac Fainting Verified 09/23/18 20:08 Date of admission: 09/23/18 19:24 Primary care physician: Taz Lubin Jr, MD Consults: 09/25/18 08:43 Consult to Cardiology [CONS] Routine Comment: Consulting Provider: Cardiology Sera Reason for Consult: AFIB with pacer, Abnormal EKG Time Notified: 08:43 Call Completed: No Discharging clinician: Sydni Herrera Anticipated date of discharge: 09/26/18 - Constitutional Vitals: Temp Pulse Resp BP Pulse Ox 97.4 F L 72 16 143/81 95 09/26/18 11:39 09/26/18 11:39 09/26/18 11:39 09/26/18 11:39 09/26/18 11:39 Exam: Vitals: Reviewed General: Well-developed male sitting in bed with mild respiratory distress noted Skin: Warm and supple HEENT: Moist mucous membranes. No conjunctivae pallor. Neck: No lymphadenopathy. No JVD. No carotid bruits. No palpable thyroid. Chest: Diminished thoracic expansion with reduced breath sounds bilaterally and scattered wheezes in both lung [place]. Heart: Irregularly irregular. Pacemaker on left upper chest wall Abdomen: Non-distended, soft and non-tender to palpation. Extremities: no edema Neurological: Awake, alert and oriented to person, place and time. No focal deficits. Psych: Affect appropriate. - Patient Status Disposition: Home, Self-Care Condition: Fair Functional capacity at discharge: independent ambulation - Discharge Instructions Follow Up With: Taz Lubin Jr, MD [Primary Care Provider] -
[2018-09-26] MEDS: *HR* Rivaroxaban 10 MG TABLET PO SCH (16:46)
[2018-09-26] MEDS ORDERED: MethylPREDNISolone 40 MG/ML VIAL IVP SCH (18:00)
[2018-09-26] MEDS: ALPRAZolam 0.25 MG TABLET PO SCH (21:23)
[2018-09-27] MEDS: Ipratropium/Albuterol Neb 3 ML IH SCH ×3 (03:33→11:14)
[2018-09-27] MEDS: *HR* HYDROcodone/Acet 5/325 mg TABLET PO PRN (05:00)
[2018-09-27 05:32] LABS: Basophils % 0.2 %; Hematocrit 36.2 % (37.5-50.1); Hemoglobin 11.8 g/dL (12.9-16.9); Immature Granulocytes % 1.3 % (0-4); Lymphocytes # 0.8 K/mcL (0.6-4.6); Lymphocytes % 10.2 %; Mean Corpuscular HGB Conc 32.6 g/dL (31.6-35.5); Mean Corpuscular Hemoglobin 29.9 pg (28.0-33.3); Mean Corpuscular Volume 91.9 fL (83.0-100.0); Mean Platelet Volume 9.6 fL (9.4-12.4); Monocytes # 0.6 K/mcL (0.0-1.3); Monocytes % 7.6 %; Neutrophils # 6.7 K/mcL (1.6-8.9); Nucleated Red Blood Cells 0.2 /100 WBC (0); Platelet Count 144 K/mcL (140-400); Red Blood Count 3.94 M/mcL (4.19-5.50); Red Cell Distribution Width 14.9 % (11.5-14.5); Segmented Neutrophils % 80.7 %
[2018-09-27 06:46] LABS: BUN/Creatinine Ratio 36 (6-26); Blood Urea Nitrogen 34 mg/dL (8-23); Calcium 9.2 mg/dL (8.6-10.3); Carbon Dioxide 32 mEq/L (23-29); Chloride 104 mEq/L (98-107); Glucose 109 mg/dL (70-105); Osmolality,Calculated 300 (280-300); Potassium 4.2 mEq/L (3.5-5.1); Sodium 141 mEq/L (136-145); eGFR For Non-African Americans > 60 (> 60)
[2018-09-27 07:27] VITALS: BP 155/95
[2018-09-27] MEDS ORDERED: predniSONE 20 MG TABLET PO SCH (09:00)
[2018-09-27] MEDS: Cholecalciferol (D-3) 1,000 UNIT TABLET PO SCH (09:12)
--- NOTE | 2018-09-27 10:52 | Internal Med Progress Note ---
Hospitalist Progress Note - Encounter Date of Encounter: 09/27/18 Time of Encounter: 10:50 - Subjective Interval History: Mr. Lowry is a 83 year old male past no focal history of asthma/COPD paroxysmal atrial fibrillation with pacemaker presented to [facility] ED with complaints of shortness of breath chest pain was down to be in moderate respiratory distress requiring oxygen supplementation as well as bronchodilators. Respiratory panel was negative for influenza however is positive for rhinovirus. Patient was admitted in the hospital and placed him on personnel monitor. His troponin X 3 were negative. He was started on symptomatic and supportive care as well as empirical antibiotic therapy with azithromycin. With IV steroids and bronchodilators symptoms improved. For his chest pain seems to be more like atypical chest pain due to cough as well as acute rhinovirus bronchitis. Patient stated he is feeling better - Exam Vitals: Temp Pulse Resp BP Pulse Ox 97.9 F 71 18 155/95 91 09/27/18 07:24 09/27/18 07:24 09/27/18 07:35 09/27/18 07:24 09/27/18 07:35 Exam: Gen: Alert, awake, Oriented to time,place and person Chest: Diminished breath sounds B/L, mild wheezing, No crackles, No rales Heart: S1S2+ a fib No murmurs Abd: Soft, NT, BS +, No organomegaly Ext: No edema, pulses are palpable, No calf tenderness Neuro : Benign findings Skin: No rash. - Assessment and Plan (1) Acute exacerbation of chronic obstructive airways disease Current Visit: Yes Status: Acute Assessment and Plan: Improving continue tapering dose steroids placed him on maintenance steroid inhaler patient did wait for echocardiogram yesterday.. No events over night his medically stable to go home now. 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 - Time Spent with Patient Total time spent is greater than 50% in coordination of care (as documented) at patient's floor/unit and/or counseling patient: Internal Medicine: Result - Labs CBC & Chem 7: 09/27/18 04:53 09/27/18 04:53 Labs: Short CBC 09/27/18 Range/Units 04:53 WBC 8.3 (4.3-11.1) K/mcL Hgb 11.8 L (12.9-16.9) g/dL Hct 36.2 L (37.5-50.1) % Plt Count 144 (140-400) K/mcL Neutrophils # 6.7 (1.6-8.9) K/mcL BMP 09/27/18 04:53 Sodium 141 Potassium 4.2 Chloride 104 Carbon Dioxide 32 H BUN 34 H Creatinine 0.95 Glucose 109 H Calcium 9.2 - Impressions Impressions Echocardiogram 09/26/18 12:56 Impressions: Underlying atrial fibrillation with intermittent pacing. LVEF 60-65%. Mild asymmetric basal septal hypertrophy without LVOT obstruction. Atypical septal motion. Indeterminate diastolic function. RV size and function are not optimally obtained. Severely dilated left atrium. Mild mitral regurgitation. Moderate tricuspid regurgitation. Mild pulmonic regurgitation. Moderate pulmonary hypertension. A device lead was visualized in the right atrium and right ventricle. Left Ventricular Wall Motion: Rest Echo Findings All wall segments showed normal motion. Findings: Study Quality * Technically adequate exam. ECG Findings * Underlying atrial fibrillation with intermittent pacing. Left Ventricle * LVEF 60-65%. * Mild asymmetric basal septal hypertrophy without LVOT obstruction. * Atypical septal motion. * Indeterminate diastolic function. Right Ventricle * RV size and function are not optimally obtained. Left Atrium * Severely dilated left atrium. Right Atrium * Normal right atrial size. Mitral Valve * Normal mitral valve structure. * No mitral stenosis. * Mild mitral annular calcification * Mild mitral regurgitation. Aortic Valve * Trileaflet aortic valve. The NCC is calcified, partially fixed and immobile. * No aortic regurgitation. * No aortic stenosis. Tricuspid Valve * Tricuspid valve not well visualized. * Moderate tricuspid regurgitation. * Estimated RA pressure is 8 mmHg. * Estimated RVSP is 56 mmHg. * Moderate pulmonary hypertension. Pulmonic Valve * Pulmonic valve is not well visualized. * No pulmonic stenosis. * Mild pulmonic regurgitation. Pulmonary Artery * Pulmonary artery not well visualized. Aorta * Normally sized aortic root. Pericardium * There is no pericardial effusion present. Device lead * A device lead was visualized in the right atrium and right ventricle. Interatrial Septum * No evidence of PFO by color Doppler. IVC * The IVC is not dilated. * < 50% respiratory change. Consult Discharge Plan - Plan Instructions: Heart Failure (DC), Atrial Fibrillation (DC), Chest Pain (DC), Chronic Obstructive Pulmonary Disease (DC) Referrals: Taz Lubin Jr, MD [Primary Care Provider] - Rah Watson MD [Partnered Physician] - 03/09/19 10:00 am Rah Matias DPM [Partnered Physician] - Brody Schmidt [Partnered Physician] - 10/04/18 1:55 pm Prescriptions: Budesonide [Pulmicort Flexhaler 90mcg] 90 mcg IH BID #1 aer.pow.ba Guaifenesin [Mucinex] 600 mg PO BID #20 tab.er.12h predniSONE [PredniSONE] 40 mg PO DAILY 2 Days tablet (2) Atrial fibrillation Qualifiers: Atrial fibrillation type: persistent Qualified Code(s): I48.1 - Persistent atrial fibrillation (3) Chest pain Qualifiers: Chest pain type: precordial pain Qualified Code(s): R07.2 - Precordial pain
--- NOTE | 2018-09-27 10:59 | Cardiology Progress Note ---
Date of Encounter: 09/27/18 Time of Encounter: 10:40 Assessment and Plan (1) Chest pain Current Visit: Yes Status: Chronic Cardiology consulted for chest pain. Atypical chest pain described, likely musculoskeletal in etiology. Reproducible chest pain upon exam. ECG shows afib, paced rhythm--similar to previous ECG. Hx of nuclear stress test in 2016--negative for ishchemia or infarct. Last TTE 2016--LVEF 60%, asymmetric hypertrophy of the basal septum, moderately dilated LA, mild MR/TR, no PH, normal wall motion. TTE with preserved LVEF. No further inpatient recommendations, will sign-off. Qualifiers: Qualified Code(s): R07.2 - Precordial pain (2) Atrial fibrillation Current Visit: Yes Status: Chronic Hx of atrial fibrillation, rate controlled on oral betablocker. Hx of tachy-irma syndrome s/p PPM in 2014. Continue Xarelto for AC. Qualifiers: Qualified Code(s): I48.1 - Persistent atrial fibrillation (3) Acute exacerbation of chronic obstructive airways disease Current Visit: Yes Status: Acute Dyspnea resolved with breathing tx, nebs, and steroids. Mgmt per primary service. Discussion w patient/family: The assessment and plan as outlined above was discussed with the patient and/or family members who expressed understanding and agreement. All questions were answered. Thank you for involving us in the care of your patient. Please call with any questions. The patient will be discussed and reviewed with Dr. Magallon; changes to be made accordingly. Subjective Principal diagnosis: Chest pain, COPD exacerbation Interval history: Seen and examined. No complaints overnight. Patient is eager for d/c to home today. Objective Vital Signs, Last 4 Hours Temp Pulse Resp BP Pulse Ox 09/27/18 07:35 18 91 09/27/18 07:24 97.9 F 71 18 155/95 92 General: Conversant, No Apparent Distress HEENT: Atraumatic, Normocephaly, Mucus Membranes Moist Neck: No JVD, Normal carotid pulses Cardiac: Reg Rate and Rhythm, Normal S1 and S2, No Murmur Lungs: Normal Breath Sounds, No Wheeze, Rales, Rhonchi Neuro: Alert and responsive, No focal deficits noted Abdomen: Soft, Non-Tender Skin: No rashes noted on visualized skin Musculoskeletal: Other (reproducible chest wall tenderness) Extremities: No Clubbing, No Cyanosis, No Edema, Normal Pulses Results 09/27/18 04:53 09/27/18 04:53 Lab Results 09/27/18 09/27/18 04:53 04:53 WBC 8.3 Hgb 11.8 L Hct 36.2 L Plt Count 144 Sodium 141 Potassium 4.2 Chloride 104 Carbon Dioxide 32 H BUN 34 H Creatinine 0.95 Glucose 109 H Calcium 9.2 Active Medications Acetaminophen (Tylenol) 650 mg PO Q6HR PRN PRN Reason: Mild Pain Stop: 03/26/19 06:39 Hydrocodone Bitart/Acetaminophen ([place] 5-325 Mg) 1 tab PO Q6HR PRN PRN Reason: Moderate Pain Stop: 03/26/19 06:39 Last Admin: 09/27/18 05:00 Dose: 1 tab Albuterol/Ipratropium (Duoneb) 3 ml IH [id number] [facility] Stop: 03/25/19 20:01 Last Admin: 09/27/18 07:35 Dose: 3 ml Alprazolam (Xanax) 0.25 mg PO HS [facility]; Protocol Stop: 03/25/19 21:01 Last Admin: 09/26/18 21:23 Dose: 0.25 mg Atorvastatin Calcium (Lipitor) 10 mg PO HS [facility] Stop: 03/25/19 21:01 Last Admin: 09/26/18 21:23 Dose: 10 mg Benzocaine/Menthol (Chloraseptic Sore Throat Lozng) 0 lozenge MM Q2HR PRN PRN Reason: Sore Throat Stop: 03/27/19 11:57 Last Admin: 09/25/18 14:36 Dose: 1 lozenge Metoprolol Tartrate (Lopressor) 50 mg PO BID [facility] Stop: 03/25/19 21:01 Last Admin: 09/27/18 09:12 Dose: 50 mg Omeprazole (Prilosec) 20 mg PO DAILY [facility]; Protocol Stop: 03/26/19 09:01 Last Admin: 09/27/18 09:12 Dose: 20 mg Oxycodone HCl (Oxycodone Oral Conc) 10 mg SL Q6HR PRN; Protocol PRN Reason: Severe Pain Stop: 03/26/19 06:40 Prednisone (Prednisone) 40 mg PO DAILY [facility] Stop: 03/29/19 09:01 Last Admin: 09/27/18 09:12 Dose: 40 mg Rivaroxaban (Xarelto) 20 mg PO 1700 [facility] Stop: 03/26/19 17:01 Last Admin: 09/26/18 16:46 Dose: 20 mg Vitamin D (Vitamin D) 1,000 unit PO DAILY [facility] Stop: 03/26/19 09:01 Last Admin: 09/27/18 09:12 Dose: 1,000 unit Impressions Echocardiogram 09/26/18 12:56 Impressions: Underlying atrial fibrillation with intermittent pacing. LVEF 60-65%. Mild asymmetric basal septal hypertrophy without LVOT obstruction. Atypical septal motion. Indeterminate diastolic function. RV size and function are not optimally obtained. Severely dilated left atrium. Mild mitral regurgitation. Moderate tricuspid regurgitation. Mild pulmonic regurgitation. Moderate pulmonary hypertension. A device lead was visualized in the right atrium and right ventricle. Left Ventricular Wall Motion: Rest Echo Findings All wall segments showed normal motion. Findings: Study Quality * Technically adequate exam. ECG Findings * Underlying atrial fibrillation with intermittent pacing. Left Ventricle * LVEF 60-65%. * Mild asymmetric basal septal hypertrophy without LVOT obstruction. * Atypical septal motion. * Indeterminate diastolic function. Right Ventricle * RV size and function are not optimally obtained. Left Atrium * Severely dilated left atrium. Right Atrium * Normal right atrial size. Mitral Valve * Normal mitral valve structure. * No mitral stenosis. * Mild mitral annular calcification * Mild mitral regurgitation. Aortic Valve * Trileaflet aortic valve. The NCC is calcified, partially fixed and immobile. * No aortic regurgitation. * No aortic stenosis. Tricuspid Valve * Tricuspid valve not well visualized. * Moderate tricuspid regurgitation. * Estimated RA pressure is 8 mmHg. * Estimated RVSP is 56 mmHg. * Moderate pulmonary hypertension. Pulmonic Valve * Pulmonic valve is not well visualized. * No pulmonic stenosis. * Mild pulmonic regurgitation. Pulmonary Artery * Pulmonary artery not well visualized. Aorta * Normally sized aortic root. Pericardium * There is no pericardial effusion present. Device lead * A device lead was visualized in the right atrium and right ventricle. Interatrial Septum * No evidence of PFO by color Doppler. IVC * The IVC is not dilated. * < 50% respiratory change. - Imaging and Cardiology Echo: report reviewed Other Results: 12 hour tele: avg HR=72 SR. - EKG Interpretation EKG results cardiology: personally reviewed Consult Discharge Plan - Plan Instructions: Heart Failure (DC), Atrial Fibrillation (DC), Chest Pain (DC), Chronic Obstructive Pulmonary Disease (DC) Referrals: Taz Lubin Jr, MD [Primary Care Provider] - Rah Watson MD [Partnered Physician] - 03/09/19 10:00 am Rah Matias DPM [Partnered Physician] - Brody Schmidt [Partnered Physician] - 10/04/18 1:55 pm Prescriptions: Budesonide [Pulmicort Flexhaler 90mcg] 90 mcg IH BID #1 aer.pow.ba Guaifenesin [Mucinex] 600 mg PO BID #20 tab.er.12h predniSONE [PredniSONE] 40 mg PO DAILY 2 Days tablet
--- NOTE | 2018-09-27 20:40 | Electrocardiograph Report ---
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
--- NOTE | 2018-09-27 22:27 | Electrocardiograph Report ---
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
== END 2018-09-27 13:10 | disposition home or self-care (01) ==
LOC: EMEROOARM 15:51 → 3BNU 15:51
PROVIDERS: ADMIT Internal Medicine; ATTEND Internal Medicine